=== PATIENT | female | born 1950 | race Caucasian/White ===

== ENCOUNTER 2017-09-24 18:31 | Emergency (ER) | payer MEDICARE, BC, OTHER ==
[~2017-09-24] VITALS: Ht 167.6 cm; Wt 74.0 kg
[~2017-09-24 18:31] MED LIST: PRED20 PO; SULF1TAB47 PO; Z.0.NO CURRENT MEDS
[2017-09-24 18:40] VITALS: PULSE 107; RESP 19; O2SAT 98
[2017-09-24] MEDS ORDERED: SODIUM CHLOR 0.9% 1000 ML INJ 1,000 ML IV ONE (18:45)
[2017-09-24] MEDS ORDERED: LORazepam 2 MG/ML VIAL IM ONE (18:45)
[2017-09-24] MEDS ORDERED: HALOPERIDOL LACTATE 5 MG/ML AMP IM ONE (18:45)
--- NOTE | 2017-09-24 19:15 | PD ---
HPI Chief Complaint: Alcohol/Drug Intoxication Time Seen by Provider: 18:43 Travel History International Travel<30 days: No Contact w/Intl Traveler<30days: No Traveled to known affect area: No History of Present Illness HPI 67-year-old female presents to the emergency Department under [place] act by local police for alcohol intoxication. Apparently, there was a disagreement with her neighbor and she was belligerent and intoxicated so she was placed under a [place] act and brought to the emergency department. Patient is uncooperative with me and will not answer questions due to being agitated and intoxicated. She has no medical complaints at this time. She is ambulatory. She denies any pain. No medical complaints this time. PFSH Past Medical History Anxiety: Yes Diminished Hearing: No ?: Not Menopausal: Yes : 1 Para: 0 Miscarriage: 0 : 1 Past Surgical History Other Surgery: Yes (pyelonitis cyst removed) Social History Alcohol Use: Yes ("3 drinks a day") Tobacco Use: Yes ("one pack of cigarettes a week") Substance Use: No Allergies-Medications (Allergen,Severity, Reaction): Coded Allergies: No Known Allergies (Verified , 08/27/10) Reported Meds & Prescriptions Reported Meds & Active Scripts Active Bactrim Ds (Trimethoprim/Sulfamethoxazole) Tab 1 Tab PO BID Deltasone (Prednisone) 20 Mg Tab 1 Tab PO BID Reported No Current Meds (Miscellaneous Medication) Misc Review of Systems Except as stated in HPI: all other systems reviewed are Neg Physical Exam Exam Limitations: Intoxication, Uncooperative Narrative GENERAL: Well-nourished, well-developed female patient, ambulatory with a steady gait. Patient is agitated with a strong smell of alcohol on her breath. SKIN: Focused skin assessment warm/dry. HEAD: Normocephalic. Atraumatic. EYES: No scleral icterus. No injection or drainage. NECK: Supple, trachea midline. No JVD or lymphadenopathy. CARDIOVASCULAR: Regular rate and rhythm without murmurs, gallops, or rubs. RESPIRATORY: Breath sounds equal bilaterally. No accessory muscle use. Lungs sounds are clear to auscultation. GASTROINTESTINAL: Abdomen soft, non-tender, nondistended. MUSCULOSKELETAL: No cyanosis, or edema. BACK: Nontender without obvious deformity. No CVA tenderness. Data Data Last Documented VS Vital Signs Date Time Temp Pulse Resp B/P (MAP) Pulse Ox O2 Delivery O2 Flow Rate FiO2 09/24/17 20:54 98.4 94 14 144/69 (94) 98 Room Air Orders Orders Lorazepam Inj (Ativan Inj) (09/24/17 18:45) Haloperidol Inj (Haldol Inj) (09/24/17 18:45) Complete Blood Count With Diff (09/24/17 18:41) Comprehensive Metabolic Panel (09/24/17 18:41) Drug Screen, Random Urine (09/24/17 18:41) Alcohol (Ethanol) (09/24/17 18:41) Sodium Chlor 0.9% 1000 Ml Inj (Ns 1000 M (09/24/17 18:45) Ct Brain W/O Iv Contrast(Rout) (09/24/17 ) Restraints Non-Violent BROWN.Q3H (09/24/17 19:15) Labs Laboratory Tests Test 09/24/17 18:50 09/24/17 21:00 White Blood Count 11.2 TH/MM3 Red Blood Count 4.34 MIL/MM3 Hemoglobin 15.2 GM/DL Hematocrit 43.7 % Mean Corpuscular Volume 100.9 FL Mean Corpuscular Hemoglobin 35.0 PG Mean Corpuscular Hemoglobin Concent 34.7 % Red Cell Distribution Width 14.0 % Platelet Count 260 TH/MM3 Mean Platelet Volume 7.8 FL Neutrophils (%) (Auto) 59.5 % Lymphocytes (%) (Auto) 30.9 % Monocytes (%) (Auto) 4.6 % Eosinophils (%) (Auto) 4.3 % Basophils (%) (Auto) 0.7 % Neutrophils # (Auto) 6.6 TH/MM3 Lymphocytes # (Auto) 3.5 TH/MM3 Monocytes # (Auto) 0.5 TH/MM3 Eosinophils # (Auto) 0.5 TH/MM3 Basophils # (Auto) 0.1 TH/MM3 CBC Comment DIFF FINAL Differential Comment Blood Urea Nitrogen 18 MG/DL Creatinine 0.79 MG/DL Random Glucose 86 MG/DL Total Protein 8.4 GM/DL Albumin 4.0 GM/DL Calcium Level 8.5 MG/DL Alkaline Phosphatase 66 U/L Aspartate Amino Transf (AST/SGOT) 33 U/L Alanine Aminotransferase (ALT/SGPT) 42 U/L Total Bilirubin 0.3 MG/DL Sodium Level 138 MEQ/L Potassium Level 4.0 MEQ/L Chloride Level 106 MEQ/L Carbon Dioxide Level 23.1 MEQ/L Anion Gap 9 MEQ/L Estimat Glomerular Filtration Rate 72 ML/MIN Ethyl Alcohol Level 320 MG/DL Urine Opiates Screen NEG Urine Barbiturates Screen NEG Urine Amphetamines Screen NEG Urine Benzodiazepines Screen NEG Urine Cocaine Screen NEG Urine Cannabinoids Screen POS MDM Medical Decision Making Medical Screen Exam Complete: Yes Emergency Medical Condition: Yes Medical Record Reviewed: Yes Differential Diagnosis Alcohol intoxication versus electrolyte abnormality versus head injury Narrative Course 59-year-old female presents to the emergency Department under [place] act for alcohol intoxication. CBC shows no acute abnormality. CMP shows no acute abnormality. Alcohol level is 320. Urine drug screen is positive for cannabinoids. CT of the brain shows no acute findings in the brain. Patient will be allowed to rest in the emergency department until she demonstrates sobriety. Diagnosis Primary Impression: Alcohol intoxication Qualified Codes: F10.920 - Alcohol use, unspecified with intoxication, uncomplicated Referrals: Primary Care Physician [facility] Patient Instructions: Alcohol Intoxication (ED), General Instructions Additional Instructions: Drink alcohol in moderation. Follow-up with your primary care physician. Return to the emergency department for any acute worsening of symptoms. Med/Other Pt SpecificInfo: No Change to Meds Disposition: 01 DISCHARGE HOME Condition: Stable Delaney Morrow ADRIANO Sep 24, 2017 19:15
[2017-09-24 19:47] LABS: AUTOMATED NEUTROPHIL # 6.6 TH/MM3 (1.8-7.7); BASOPHIL # 0.1 TH/MM3 (0-0.2); BASOPHIL % 0.7 % (0.0-2.0); EOSINOPHIL # 0.5 TH/MM3 (0-0.4); EOSINOPHIL % 4.3 % (0.0-4.0); HEMATOCRIT 43.7 % (35.0-46.0); HEMO FLAGS DIFF FINAL; LYMPH % 30.9 % (9.0-44.0); LYMPHOCYTE # 3.5 TH/MM3 (1.0-4.8); MEAN CELL VOLUME 100.9 FL (80.0-100.0); MEAN CORPUSCULAR HGB CONC 34.7 % (32.0-36.0); MONO % 4.6 % (0.0-8.0); NEUT % 59.5 % (16.0-70.0); PLATELET COUNT 260 TH/MM3 (150-450); RED BLOOD COUNT 4.34 MIL/MM3 (4.00-5.30); WHITE BLOOD COUNT 11.2 TH/MM3 (4.0-11.0)
[2017-09-24 20:10] LABS: ANION GAP 9 MEQ/L (5-15); AST (GOT) 33 U/L (15-37); BICARBONATE 23.1 MEQ/L (21.0-32.0); BLOOD UREA NITROGEN 18 MG/DL (7-18); CHLORIDE 106 MEQ/L (98-107); GLOMERULAR FILTRATION RATE 72 ML/MIN (>89); SODIUM (NA) 138 MEQ/L (136-145)
[2017-09-24 20:11] LABS: ALT (GPT) 42 U/L (10-53)
[2017-09-24 20:15] LABS: ALKALINE PHOSPHATASE 66 U/L (45-117); TOTAL BILIRUBIN ADULT 0.3 MG/DL (0.2-1.0)
[2017-09-24 20:18] LABS: ALCOHOL 320 MG/DL (0-5)
[2017-09-24 20:54] VITALS: BP 144/69; PULSE 94; RESP 14; TEMP 98.4; O2SAT 98
--- NOTE | 2017-09-24 22:00 | RADRPT ---
EXAM DATE/TIME: 09/24/2017 21:33 [facility] COMPARISON: No previous studies available for comparison. INDICATIONS : Altered mental status. RADIATION DOSE: 56.35 CTDIvol (mGy) MEDICAL HISTORY : None SURGICAL HISTORY : None. ENCOUNTER: Initial ACUITY: 1 day PAIN SCALE: Non-responsive LOCATION: cranial TECHNIQUE: Multiple contiguous axial images were obtained of the head. Using automated exposure control and adj ustment of the mA and/or kV according to patient size, radiation dose was kept as low as reasonably a chievable to obtain optimal diagnostic quality images. DICOM format image data is available electro nically for review and comparison. FINDINGS: CEREBRUM: The ventricles are normal for age. No evidence of midline shift, mass lesion, hemorrhage or acute in farction. No extra-axial fluid collections are seen. POSTERIOR FOSSA: The cerebellum and brainstem are intact. The 4th ventricle is midline. The cerebellopontine angle i s unremarkable. EXTRACRANIAL: The visualized portion of the orbits is intact. Mucosal thickening in both maxillary sinuses and opa cification of several anterior and mid ethmoids. SKULL: The calvaria is intact. No evidence of skull fracture. CONCLUSION: 1. No acute findings in the brain. 2. Bilateral maxillary and ethmoid sinus disease. Angel Antunez MD on September 24, 2017 at 21:57 Board Certified Radiologist. This report was verified electronically.
[2017-09-24 23:52] VITALS: BP 137/67; PULSE 98; RESP 16; O2SAT 96
== END 2017-09-25 05:59 | disposition home or self-care (01) ==
LOC: NEPE 18:31
DX: F10.129 Alcohol abuse with intoxication, unspecified (principal); F17.210 Nicotine dependence, cigarettes, uncomplicated; Y90.8 Blood alcohol level of 240 mg/100 ml or more
CPT/HCPCS: 70450; 80053; 80307; 85025; 96360; 96361; 96372; 99285; J1630; J2060; J7030

== ENCOUNTER 2018-01-26 09:19 | Inpatient (IN) | payer MEDICARE, BC ==
[2018-01-26] VITALS (10 sets, daily range): BP systolic 125–160; BP diastolic 58–86; PULSE 73–105; RESP 18–20; TEMP 97.5–99.6; O2SAT 95–100
[~2018-01-26] VITALS: Ht 172.7 cm; Wt 73.4 kg
--- NOTE | 2018-01-26 09:36 | PD ---
HPI Chief Complaint: Abdominal Pain Time Seen by Provider: 09:36 Travel History International Travel<30 days: No Contact w/Intl Traveler<30days: No Traveled to known affect area: No History of Present Illness HPI 67-year-old female came to the emergency room brought by her brother with history of shakiness, unsteady gait, nausea and vomiting that is progressively worsening over past 2-3 weeks. Patient says that she tripped and fell 6 weeks ago and her symptoms have almost started couple weeks after that. Patient also happens to be a heavy drinker. She was drinking about 6-8 glasses of vodka mixed with water every day for past many years. In past 2-3 weeks because of the nausea her alcohol consumption has gone down to 4-6 glasses. She starts drinking when she wakes up until she goes to sleep. Vital signs were relatively stable. Patient is awake and answering questions appropriately. She said she drank 2 glasses of vodka this morning. Her brother gives additional history saying that she patient has been vomiting for past 2 years but has refused to come and seek medical help. She does not have a primary care physician. She also says that she has some episodes of diarrhea every day. No blood in her stool or vomit. She takes 1 regular strength aspirin every day for her "heart". This was her own decision. [facility] Past Medical History Narrative Medical List of her past medical, surgical, social and family history is reviewed from the nursing note. Hx Anticoagulant Therapy: No Anxiety: Yes Diminished Hearing: No ?: Not Menopausal: Yes : 1 Para: 0 Miscarriage: 0 : 1 Past Surgical History Other Surgery: Yes (pyelonitis cyst removed) Social History Alcohol Use: Yes ("3 drinks a day") Tobacco Use: Yes ("one pack of cigarettes a week") Substance Use: No Allergies-Medications (Allergen,Severity, Reaction): Coded Allergies: No Known Allergies (Verified Allergy, Unknown, 01/26/18) Comments No known drug allergies. Reported Meds & Prescriptions Reported Meds & Active Scripts Active Reported Aspirin 325 Mg Tab 325 Mg PO DAILY Narrative Medication List of her home medications reviewed from the nursing note. Review of Systems Except as stated in HPI: all other systems reviewed are Neg Gastrointestinal: Positive: Nausea, Vomiting Physical Exam Narrative GENERAL: Awake, alert, moderate distress SKIN: Focused skin assessment warm/dry. HEAD: Atraumatic. Normocephalic. EYES: Pupils equal and round. No scleral icterus. No injection or drainage. ENT: No nasal bleeding or discharge. Mucous membranes pink and moist. NECK: Trachea midline. No JVD. CARDIOVASCULAR: Regular rate and rhythm. No murmur appreciated. RESPIRATORY: No accessory muscle use. Clear to auscultation. Breath sounds equal bilaterally. GASTROINTESTINAL: Abdomen soft, non-tender, nondistended. Hepatic and splenic margins not palpable. MUSCULOSKELETAL: No obvious deformities. No clubbing. No cyanosis. No edema. NEUROLOGICAL: Awake and alert. No obvious cranial nerve deficits. Motor grossly within normal limits. Normal speech. Fine tremors. Good finger-nose and heel myrick coordination PSYCHIATRIC: Appropriate mood and affect; insight and judgment normal. Data Data Last Documented VS Orders Orders Complete Blood Count With Diff (01/26/18 09:45) Comprehensive Metabolic Panel (01/26/18 09:45) Lipase (01/26/18 09:45) Prothrombin Time / Inr (Pt) (01/26/18 09:45) Urinalysis - C+S If Indicated (01/26/18 09:45) Ct Abd/Pel W/O Iv Contrast (01/26/18 09:45) Iv Access Insert/Monitor (01/26/18 09:45) Ecg Monitoring (01/26/18 09:45) Oximetry (01/26/18 09:45) Ondansetron Inj (Zofran Inj) (01/26/18 09:45) Sodium Chlor 0.9% 1000 Ml Inj (Ns 1000 M (01/26/18 09:45) Sodium Chloride 0.9% Flush (Ns Flush) (01/26/18 09:45) Electrocardiogram (01/26/18 09:45) Meclizine (Antivert) (01/26/18 09:45) Ct Brain W/O Iv Contrast(Rout) (01/26/18 ) Alcohol (Ethanol) (01/26/18 09:45) Thiamine Inj (Thiamine Inj) (01/26/18 10:00) Chlordiazepoxide (Librium) (01/26/18 11:45) Hepatitis Profile (01/26/18 11:44) Magnesium (Mg) (01/26/18 12:05) Admit Order (Ed Use Only) (01/26/18 12:16) Labs Laboratory Tests Test 01/26/18 10:05 01/26/18 11:53 White Blood Count 5.5 TH/MM3 Red Blood Count 4.12 MIL/MM3 Hemoglobin 13.8 GM/DL Hematocrit 41.0 % Mean Corpuscular Volume 99.5 FL Mean Corpuscular Hemoglobin 33.5 PG Mean Corpuscular Hemoglobin Concent 33.6 % Red Cell Distribution Width 12.8 % Platelet Count 184 TH/MM3 Mean Platelet Volume 8.6 FL Neutrophils (%) (Auto) 69.5 % Lymphocytes (%) (Auto) 21.2 % Monocytes (%) (Auto) 6.1 % Eosinophils (%) (Auto) 1.1 % Basophils (%) (Auto) 2.1 % Neutrophils # (Auto) 3.8 TH/MM3 Lymphocytes # (Auto) 1.2 TH/MM3 Monocytes # (Auto) 0.3 TH/MM3 Eosinophils # (Auto) 0.1 TH/MM3 Basophils # (Auto) 0.1 TH/MM3 CBC Comment DIFF FINAL Differential Comment Prothrombin Time 9.6 SEC Prothromb Time International Ratio 0.9 RATIO Blood Urea Nitrogen 7 MG/DL Creatinine 0.64 MG/DL Random Glucose 79 MG/DL Total Protein 7.7 GM/DL Albumin 3.6 GM/DL Calcium Level 9.2 MG/DL Alkaline Phosphatase 89 U/L Aspartate Amino Transf (AST/SGOT) 391 U/L Alanine Aminotransferase (ALT/SGPT) 382 U/L Total Bilirubin 0.8 MG/DL Sodium Level 131 MEQ/L Potassium Level 3.7 MEQ/L Chloride Level 93 MEQ/L Carbon Dioxide Level 23.0 MEQ/L Anion Gap 15 MEQ/L Estimat Glomerular Filtration Rate 92 ML/MIN Magnesium Level 1.6 MG/DL Lipase 425 U/L Ethyl Alcohol Level 37 MG/DL Urine Collection Type CLEAN CATCH Urine Color YELLOW Urine Turbidity CLEAR Urine pH 6.5 Urine Specific [place] LESS/EQUAL 1.005 Urine Protein NEG mg/dL Urine Glucose (UA) NEG mg/dL Urine Ketones NEG mg/dL Urine Occult Blood TRACE Urine Nitrite NEG Urine Bilirubin NEG Urine Urobilinogen 0.2 MG/DL Urine Leukocyte Esterase NEG Urine Squamous Epithelial Cells 0-5 /hpf Microscopic Urinalysis Comment CULT NOT INDICATED MDM Medical Decision Making Medical Screen Exam Complete: Yes Emergency Medical Condition: Yes Medical Record Reviewed: Yes Interpretation(s) Twelve-lead EKG was reviewed by me. Normal sinus rhythm, normal axis, nonspecific ST-T wave changes. Heart rate of 91 bpm. Differential Diagnosis Small bowel obstruction, intra-abdominal mass, neoplasm, alcoholic gastritis Narrative Course 11:42 AM patient was given IV fluid bolus and Zofran. I also ordered meclizine. CAT scan of the head and abdomen and pelvis was done which is read essentially to be negative except for steatosis of the liver. Blood test result shows elevated liver enzymes. I went and discussed all these results with the patient and her brother. In my opinion all her symptoms are related to the chronic abuse of alcohol. After much discussion the patient and the brother decided that patient will be going through detox. However I can see that she's already withdrawing since her shakes and tremors have worsened when I went back to reassess her. She has a high risk for withdrawal including DTs. I would keep her in the hospital if she has seriously decided and considered detox. I put a call out for the hospitalist. Procedures EKG Prior to Arrival: No Diagnosis Primary Impression: Alcohol withdrawal Qualified Codes: F10.239 - Alcohol dependence with withdrawal, unspecified Additional Impressions: Alcoholic gastritis Qualified Codes: K29.20 - Alcoholic gastritis without bleeding impending DTs Elevated liver function tests Admitting Information Admitting Physician Requests: it Natividad Kaufman MD Jan 26, 2018 09:36
[2018-01-26] MEDS ORDERED: ASPI-183 PO (09:42)
[2018-01-26] MEDS ORDERED: MECLIZINE HCL 25 MG TAB PO ONE (09:45)
[2018-01-26] MEDS ORDERED: SODIUM CHLOR 0.9% 1000 ML INJ 1,000 ML IV SCH (09:45)
[2018-01-26] MEDS ORDERED: SODIUM CHLORIDE 0.9% FLUSH 10 ML FLUSH IV FLUSH PRN ×2 (09:45→12:45)
[2018-01-26] MEDS ORDERED: ONDANSETRON HCL 4 MG/2 ML VIAL IVP ONE (09:45)
[2018-01-26] MEDS ORDERED: THIAMINE HCL 200 MG/2 ML VIAL IM ONE (10:00)
[2018-01-26 10:15] LABS: AUTOMATED NEUTROPHIL # 3.8 TH/MM3 (1.8-7.7); BASOPHIL # 0.1 TH/MM3 (0-0.2); BASOPHIL % 2.1 % (0.0-2.0); EOSINOPHIL # 0.1 TH/MM3 (0-0.4); EOSINOPHIL % 1.1 % (0.0-4.0); HEMOGLOBIN 13.8 GM/DL (11.6-15.3); LYMPH % 21.2 % (9.0-44.0); LYMPHOCYTE # 1.2 TH/MM3 (1.0-4.8); MEAN CELL VOLUME 99.5 FL (80.0-100.0); MEAN CORPUSCULAR HEMOGLOBIN 33.5 PG (27.0-34.0); MEAN CORPUSCULAR HGB CONC 33.6 % (32.0-36.0); MEAN PLATELET VOLUME 8.6 FL (7.0-11.0); MONO % 6.1 % (0.0-8.0); MONOCYTE # 0.3 TH/MM3 (0-0.9); NEUT % 69.5 % (16.0-70.0); PLATELET COUNT 184 TH/MM3 (150-450); RED BLOOD COUNT 4.12 MIL/MM3 (4.00-5.30); RED CELL DISTRIBUTION WIDTH 12.8 % (11.6-17.2); WHITE BLOOD COUNT 5.5 TH/MM3 (4.0-11.0)
[2018-01-26 10:26] LABS: CHLORIDE 93 MEQ/L (98-107); SODIUM (NA) 131 MEQ/L (136-145)
[2018-01-26 10:29] LABS: ALBUMIN 3.6 GM/DL (3.4-5.0); CALCIUM 9.2 MG/DL (8.5-10.1); GLUCOSE,RANDOM 79 MG/DL (74-106)
[2018-01-26 10:30] LABS: BLOOD UREA NITROGEN 7 MG/DL (7-18)
[2018-01-26 10:32] LABS: ALT (GPT) 382 U/L (10-53); AST (GOT) 391 U/L (15-37); CREATININE 0.64 MG/DL (0.50-1.00); GLOMERULAR FILTRATION RATE 92 ML/MIN (>89)
[2018-01-26 10:34] LABS: TOTAL BILIRUBIN ADULT 0.8 MG/DL (0.2-1.0); TOTAL PROTEIN 7.7 GM/DL (6.4-8.2)
[2018-01-26 10:35] LABS: ALKALINE PHOSPHATASE 89 U/L (45-117)
[2018-01-26 10:41] LABS: INTERNATIONAL NORMALIZED RATIO 0.9 RATIO; PROTHROMBIN TIME - PATIENT 9.6 SEC (9.8-11.6)
--- NOTE | 2018-01-26 10:59 | RADRPT ---
EXAM DATE/TIME: 01/26/2018 10:46 [facility] COMPARISON: CT BRAIN W/O CONTRAST, September 24, 2017, 21:33. INDICATIONS : Dizziness. RADIATION DOSE: 60.57 CTDIvol (mGy) MEDICAL HISTORY : None SURGICAL HISTORY : None. ENCOUNTER: Initial ACUITY: 3 days PAIN SCALE: 0/10 LOCATION: cranial TECHNIQUE: Multiple contiguous axial images were obtained of the head. Using automated exposure control and adj ustment of the mA and/or kV according to patient size, radiation dose was kept as low as reasonably a chievable to obtain optimal diagnostic quality images. DICOM format image data is available electro nically for review and comparison. FINDINGS: CEREBRUM: The ventricles are normal for age. No evidence of midline shift, mass lesion, hemorrhage or acute in farction. No extra-axial fluid collections are seen. POSTERIOR FOSSA: The cerebellum and brainstem are intact. The 4th ventricle is midline. The cerebellopontine angle i s unremarkable. EXTRACRANIAL: The visualized portion of the orbits is intact. SKULL: The calvaria is intact. No evidence of skull fracture. CONCLUSION: No acute hemorrhage mass or evidence of infarction. Main Ahumada MD on January 26, 2018 at 10:56 Board Certified Radiologist. This report was verified electronically.
--- NOTE | 2018-01-26 11:19 | RADRPT ---
EXAM DATE/TIME: 01/26/2018 10:40 [facility] COMPARISON: No previous studies available for comparison. INDICATIONS : Left abdominal pain with nausea and vomiting. ORAL CONTRAST: No oral contrast ingested. RADIATION DOSE: 13.81 CTDIvol (mGy) MEDICAL HISTORY : None SURGICAL HISTORY : None. ENCOUNTER: Initial ACUITY: 3 days PAIN SCALE: 8/10 LOCATION: Left abdomen TECHNIQUE: Volumetric scanning of the abdomen and pelvis was performed. Using automated exposure control and ad justment of the mA and/or kV according to patient size, radiation dose was kept as low as reasonably achievable to obtain optimal diagnostic quality images. DICOM format image data is available electro nically for review and comparison. FINDINGS: LOWER LUNGS: The visualized lower lungs are clear. LIVER: The liver is normal in size and shape. There is severe diffuse hepatic steatosis with 2 focal low att enuation lesions identified. The larger is located in the central liver measuring approximately 4 x 3 .6 x 2.8 cm. The second is in the inferior right lobe and measures approximately 1.5 cm and is subtle . There is no ductal dilatation. There is no ascites. The portal venous system is patent. The gallbla dder is unremarkable with no calcified gallstones. SPLEEN: Normal size without lesion. PANCREAS: Within normal limits. KIDNEYS: Normal in size and shape. There is no mass, stone, or hydronephrosis. ADRENAL GLANDS: Within normal limits. VASCULAR: There is no aortic aneurysm. BOWEL/MESENTERY: The stomach, small bowel, and colon demonstrate no acute abnormality. There is no free intraperitone al air or fluid. ABDOMINAL WALL: Within normal limits. RETROPERITONEUM: There is no lymphadenopathy. BLADDER: No wall thickening or mass. REPRODUCTIVE: Within normal limits. INGUINAL: There is no lymphadenopathy or hernia. MUSCULOSKELETAL: Within normal limits for patient age. CONCLUSION: 1. Unremarkable bowel gas pattern with no inflammatory change or evidence of obstruction. 2. Severe hepatic steatosis with 2 focal low attenuation lesions which are nonspecific. This could be further evaluated with outpatient MRI. Main Ahumada MD on January 26, 2018 at 11:07 Board Certified Radiologist. This report was verified electronically.
[2018-01-26] MEDS ORDERED: chlordiazePOXIDE 25 MG CAP PO ONE (11:45)
[2018-01-26 12:07] LABS: BILIRUBIN, URINE NEG (NEG); BLOOD, URINE TRACE (NEG); GLUCOSE,URINE NEG (NEG); KETONE, URINE NEG (NEG); NITRITE,URINE NEG (NEG); PH, URINE 6.5 (5.0-8.5); URINE COLOR YELLOW (YELLW/STRAW); URINE LEUKOCYTE ESTERASE NEG (NEG)
[2018-01-26 12:12] LABS: SQUAMOUS EPITHELIAL CELL URINE 0-5 /hpf (0-5)
[2018-01-26] MEDS ORDERED: FLUMAZENIL 0.5 MG/5 ML VIAL IV PUSH PRN (12:45)
[2018-01-26] MEDS ORDERED: LORazepam 2 MG TAB PO PRN (12:45)
[2018-01-26] MEDS ORDERED: MAGNESIUM HYDROXIDE SUSP 30 ML CUP PO PRN (12:45)
[2018-01-26] MEDS ORDERED: LORazepam 2 MG/ML VIAL IV PUSH PRN ×3 (12:45)
[2018-01-26] MEDS ORDERED: NALOXONE HCL 0.4 MG/ML AMP IV PUSH PRN (12:45)
[2018-01-26] MEDS: SODIUM CHLOR 0.9% 1000 ML INJ 1,000 ML IV SCH ×2 (13:28→23:46)
[2018-01-26] MEDS ORDERED: ONDANSETRON HCL 4 MG/2 ML VIAL IVP PRN (16:00)
[2018-01-26] MEDS: chlordiazePOXIDE 25 MG CAP PO SCH (17:25)
[2018-01-26] MEDS: ENOXAPARIN SODIUM 40 MG/0.4 ML SYRINGE SQ SCH (17:26)
--- NOTE | 2018-01-26 18:46 | HHI.HP ---
[facility] Service [facility] Primary Care Physician No Primary Care Physician Admission Diagnosis alcohol withdrawal, impending DTs, elevated liver enzymes Diagnoses: Travel History International Travel<30 Days: No Contact w/Intl Traveler <30 Da: No Traveled to Known Affected Are: No History of Present Illness Mrs. Hurtado is a 67 year old female. She has a long history of alcohol abuse. She is been drinking heavily for many years. She came in the hospital secondary to shaking. She says recently she has been trying to cut back or drink. She also complains of abdominal pain. This may be related to alcohol abuse and gastritis. LFTs are elevated. She has a history of hepatitis. She cannot remember which hepatitis virus she has. LFT elevations could be related to alcohol or chronic hepatitis. No other complaints tonight. Some diarrhea as reported and can also be related to alcoholism. Review of Systems Constitutional: COMPLAINS OF: Fatigue, DENIES: Fever, Chills Eyes: DENIES: Blurred vision, Diplopia, Eye inflammation, Eye pain Ears, nose, mouth, throat: DENIES: Hearing loss, Vertigo, Nasal discharge Respiratory: DENIES: Cough, Wheezing, Shortness of breath Cardiovascular: DENIES: Chest pain, Palpitations, Syncope Gastrointestinal: DENIES: Abdominal pain, Black stools, Bloody stools Musculoskeletal: DENIES: Joint pain, Muscle aches, Stiffness Integumentary: DENIES: Abnormal pigmentation, Pruritus, Rash, Nail changes, Breast masses Hematologic/lymphatic: DENIES: Bruising, Lymphadenopathy Immunologic/allergic: DENIES: Eczema, Urticaria Neurologic: COMPLAINS OF: Tremor, DENIES: Abnormal gait, Headache, Paresthesias Psychiatric: DENIES: Anxiety, Confusion, Depression Past Family Social History Past Medical History Alcoholism Gen. anxiety disorder Past Surgical History pyelonitis cyst removed Reported Medications Reported Meds & Active Scripts Active Reported Aspirin 325 Mg Tab 325 Mg PO DAILY Allergies: Coded Allergies: No Known Allergies (Verified Allergy, Unknown, 01/26/18) Active Ordered Medications Administered Medications Medications (Trade) Dose Ordered Sig/Gume Route PRN Reason Start Time Stop Time Status Last Admin Dose Admin Sodium Chloride 1,000 ml @ 100 mls/hr Q10H IV 01/26/18 12:42 01/26/18 13:28 Enoxaparin Sodium (Lovenox Inj) 40 mg Q24H SQ 01/26/18 18:00 01/26/18 17:26 Chlordiazepoxide (Librium) 25 mg Q6H PO 01/26/18 18:00 01/26/18 17:25 Lorazepam (Ativan Inj) 1 mg Q4H PRN IV PUSH CIWA 8 - 10 01/26/18 12:45 01/26/18 17:28 Family History Alzheimer's disease in mother Cancer in father Dementia in sister Social History Alcohol Use: Yes ("3 drinks a day") Tobacco Use: Yes ("one pack of cigarettes a week") Substance Use: No Physical Exam Vital Signs Vital Signs Date Time Temp Pulse Resp B/P (MAP) Pulse Ox O2 Delivery O2 Flow Rate FiO2 01/26/18 17:18 97 Room Air 01/26/18 17:14 105 18 125/77 (93) 95 Room Air 01/26/18 13:05 81 18 158/75 (102) 99 Room Air 01/26/18 11:04 88 18 160/84 (109) 99 Room Air 01/26/18 10:09 99 Room Air 01/26/18 09:36 86 18 159/86 (110) 97 Room Air 01/26/18 09:22 99.6 105 18 134/78 (96) 100 Physical Exam GENERAL: NAD, A&Ox3, global tremors HEAD: Normocephalic. NECK: Supple, trachea midline. No lymphadenopathy. EYES: No scleral icterus. No injection or drainage. CARDIOVASCULAR: Regular rate and rhythm without murmurs, gallops, or rubs. RESPIRATORY: Breath sounds equal bilaterally. No accessory muscle use. GASTROINTESTINAL: Abdomen soft, non-tender, nondistended. MUSCULOSKELETAL: No cyanosis, or edema. SKIN: Warm and dry. NEURO: No focal neurological deficitis. Laboratory Laboratory Tests Test 01/26/18 10:05 01/26/18 11:53 01/26/18 12:36 White Blood Count 5.5 Red Blood Count 4.12 Hemoglobin 13.8 Hematocrit 41.0 Mean Corpuscular Volume 99.5 Mean Corpuscular Hemoglobin 33.5 Mean Corpuscular Hemoglobin Concent 33.6 Red Cell Distribution Width 12.8 Platelet Count 184 Mean Platelet Volume 8.6 Neutrophils (%) (Auto) 69.5 Lymphocytes (%) (Auto) 21.2 Monocytes (%) (Auto) 6.1 Eosinophils (%) (Auto) 1.1 Basophils (%) (Auto) 2.1 Neutrophils # (Auto) 3.8 Lymphocytes # (Auto) 1.2 Monocytes # (Auto) 0.3 Eosinophils # (Auto) 0.1 Basophils # (Auto) 0.1 CBC Comment DIFF FINAL Differential Comment Prothrombin Time 9.6 Prothromb Time International Ratio 0.9 Blood Urea Nitrogen 7 Creatinine 0.64 Random Glucose 79 Total Protein 7.7 Albumin 3.6 Calcium Level 9.2 Alkaline Phosphatase 89 Aspartate Amino Transf (AST/SGOT) 391 Alanine Aminotransferase (ALT/SGPT) 382 Total Bilirubin 0.8 Sodium Level 131 Potassium Level 3.7 Chloride Level 93 Carbon Dioxide Level 23.0 Anion Gap 15 Estimat Glomerular Filtration Rate 92 Magnesium Level 1.6 Lipase 425 Ethyl Alcohol Level 37 Urine Collection Type CLEAN CATCH Urine Color YELLOW Urine Turbidity CLEAR Urine pH 6.5 Urine Specific [place] LESS/EQUAL 1.005 Urine Protein NEG Urine Glucose (UA) NEG Urine Ketones NEG Urine Occult Blood TRACE Urine Nitrite NEG Urine Bilirubin NEG Urine Urobilinogen 0.2 Urine Leukocyte Esterase NEG Urine Squamous Epithelial Cells 0-5 Microscopic Urinalysis Comment CULT NOT INDICATED Hepatitis A IgM Antibody NONREACTIVE Hepatitis B Surface Antigen NONREACTIVE Hepatitis B Core IgM Antibody NONREACTIVE Hepatitis C IgG Antibody NONREACTIVE Result Diagram: 01/26/18 1005 01/26/18 1005 Caprini VTE Risk Assessment Caprini VTE Risk Assessment: No/Low Risk (score <= 1) Caprini Risk Assessment Model Point Value = 1 Point Value = 2 Point Value = 3 Point Value = 5 Age 41-60 Minor surgery BMI > 25 kg/m2 Swollen legs Varicose veins or History of unexplained or recurrent spontaneous Oral contraceptives or hormone replacement Sepsis (< 1 month) Serious lung disease, including pneumonia (< 1 month) Abnormal pulmonary function Acute myocardial infarction Congestive heart failure (< 1 month) History of inflammatory bowel disease Medical patient at bed rest Age 61-74 Arthroscopic surgery Major open surgery (> 45 min) Laparoscopic surgery (> 45 min) Malignancy Confined to bed (> 72 hours) Immobilizing plaster cast Central venous access Age >= 75 History of VTE Family history of VTE Factor V Leiden Prothrombin [id number] Lupus anticoagulant Anticardiolipin antibodies Elevated serum homocysteine Heparin-induced thrombocytopenia Other congenital or acquired thrombophilia Stroke (< 1 month) Elective arthroplasty Hip, pelvis, or leg fracture Acute spinal cord injury (< 1 month) Prophylaxis Regimen Total Risk Factor Score Risk Level Prophylaxis Regimen 0-1 Low Early ambulation 2 Moderate Order ONE of the following: *Sequential Compression Device (SCD) *Heparin 5000 units SQ BID 3-4 Higher Order ONE of the following medications: *Heparin 5000 units SQ TID *Enoxaparin/Lovenox 40 mg SQ daily (WT < 150 kg, CrCl > 30 mL/min) *Enoxaparin/Lovenox 30 mg SQ daily (WT < 150 kg, CrCl > 10-29 mL/min) *Enoxaparin/Lovenox 30 mg SQ BID (WT < 150 kg, CrCl > 30 mL/min) AND/OR *Sequential Compression Device (SCD) 5 or more Highest Order ONE of the following medications: *Heparin 5000 units SQ TID (Preferred with Epidurals) *Enoxaparin/Lovenox 40 mg SQ daily (WT < 150 kg, CrCl > 30 mL/min) *Enoxaparin/Lovenox 30 mg SQ daily (WT < 150 kg, CrCl > 10-29 mL/min) *Enoxaparin/Lovenox 30 mg SQ BID (WT < 150 kg, CrCl > 30 mL/min) AND *Sequential Compression Device (SCD) Assessment and Plan Problem List: (1) Alcohol withdrawal ICD Code: F10.239 - Alcohol dependence with withdrawal, unspecified Status: Acute (2) Alcoholic gastritis ICD Code: K29.20 - Alcoholic gastritis without bleeding Status: Acute (3) Elevated liver function tests ICD Code: R79.89 - Other specified abnormal findings of blood chemistry Status: Acute Assessment and Plan 67-year-old female admitted secondary to delirium tremens Delirium tremens Alcohol abuse Alcohol withdrawal Folic acid Thiamine Scheduled Librium CIWA protocol Elevated LFTs Hepatitis panel ordered Gastritis Twice a day Protonix Avoid alcohol Follow clinically for improvement DVT prophylaxis Lovenox Physician Certification 2 Midnight Certification Type: Admission for Inpatient Services Order for Inpatient Services The services are ordered in accordance with Medicare regulations or non- Medicare payer requirements, as applicable. In the case of services not specified as inpatient-only, they are appropriately provided as inpatient services in accordance with the 2-midnight benchmark. Estimated LOS (days): 3 days is the estimated time the patient will need to remain in the hospital, assuming treatment plan goals are met and no additional complications. Post-Hospital Plan: Home Problem Qualifiers (1) Alcohol withdrawal: Qualified Codes: F10.239 - Alcohol dependence with withdrawal, unspecified (2) Alcoholic gastritis: Qualified Codes: K29.20 - Alcoholic gastritis without bleeding Octavio Arteaga MD Jan 26, 2018 18:45
[2018-01-26] MEDS: SODIUM CHLORIDE 0.9% FLUSH 10 ML FLUSH IV FLUSH SCH (22:30)
[2018-01-26] MEDS: PANTOPRAZOLE SOD 40 MG DELAYED RELEASE TAB PO SCH (22:30)
[2018-01-27] VITALS: BP 131/72; PULSE 72; RESP 20; TEMP 97.2; O2SAT 96
[2018-01-27] MEDS: chlordiazePOXIDE 25 MG CAP PO SCH ×4 (00:04→17:02)
--- NOTE | 2018-01-27 00:04 | EKG ---
Date Performed: 01/26/2018 Time Performed: 10:15:19 PTAGE: 67 years EKG: Sinus rhythm NONSPECIFIC ST & T-WAVE ABNORMALITY BORDERLINE ECG PREVIOUS TRACING : 06/01/2010 07.55 DOCTOR: Bebeto Martinez Interpretating Date/Time 01/26/2018 23:59:48
[2018-01-27] MEDS ORDERED: LORazepam 1 MG TAB PO ONE (04:00)
[2018-01-27 08:00] VITALS: BP 134/77; PULSE 74; RESP 18; TEMP 97.8; O2SAT 96
[2018-01-27] MEDS: MULTIVITAMINS/MINERALS THERAPEUTIC TAB PO SCH (08:33)
[2018-01-27] MEDS: PANTOPRAZOLE SOD 40 MG DELAYED RELEASE TAB PO SCH ×2 (08:33→21:13)
[2018-01-27] MEDS: THIAMINE HCL 100 MG TAB PO SCH (08:33)
[2018-01-27] MEDS: FOLIC ACID 1 MG TAB PO SCH (08:33)
[2018-01-27] MEDS: SODIUM CHLOR 0.9% 1000 ML INJ 1,000 ML IV SCH ×2 (08:34→16:59)
[2018-01-27] MEDS: SODIUM CHLORIDE 0.9% FLUSH 10 ML FLUSH IV FLUSH SCH ×2 (08:34→21:14)
[2018-01-27 09:16] LABS: AUTOMATED NEUTROPHIL # 2.7 TH/MM3 (1.8-7.7); EOSINOPHIL # 0.1 TH/MM3 (0-0.4); EOSINOPHIL % 2.2 % (0.0-4.0); HEMATOCRIT 36.9 % (35.0-46.0); HEMOGLOBIN 12.2 GM/DL (11.6-15.3); LYMPH % 28.3 % (9.0-44.0); LYMPHOCYTE # 1.2 TH/MM3 (1.0-4.8); MEAN CORPUSCULAR HEMOGLOBIN 33.5 PG (27.0-34.0); MEAN CORPUSCULAR HGB CONC 33.2 % (32.0-36.0); MEAN PLATELET VOLUME 8.4 FL (7.0-11.0); MONO % 8.1 % (0.0-8.0); MONOCYTE # 0.3 TH/MM3 (0-0.9); NEUT % 60.4 % (16.0-70.0); PLATELET COUNT 155 TH/MM3 (150-450); RED BLOOD COUNT 3.65 MIL/MM3 (4.00-5.30); WHITE BLOOD COUNT 4.3 TH/MM3 (4.0-11.0)
[2018-01-27 10:05] LABS: ALBUMIN 3.2 GM/DL (3.4-5.0); ALT (GPT) 258 U/L (10-53); AST (GOT) 221 U/L (15-37); BICARBONATE 26.8 MEQ/L (21.0-32.0); BLOOD UREA NITROGEN 10 MG/DL (7-18); CALCIUM 8.4 MG/DL (8.5-10.1); CHLORIDE 103 MEQ/L (98-107); CREATININE 0.65 MG/DL (0.50-1.00); GLOMERULAR FILTRATION RATE 91 ML/MIN (>89); GLUCOSE,RANDOM 89 MG/DL (74-106); SODIUM (NA) 138 MEQ/L (136-145); TOTAL PROTEIN 6.7 GM/DL (6.4-8.2)
[2018-01-27 10:06] LABS: ALKALINE PHOSPHATASE 78 U/L (45-117)
[2018-01-27 10:07] LABS: TOTAL BILIRUBIN ADULT 0.7 MG/DL (0.2-1.0)
[2018-01-27] MEDS ORDERED: POTASSIUM CHLORIDE 10 MEQ CONTROLLED RELEASE TAB PO ONE (11:30)
--- NOTE | 2018-01-27 11:30 | HHI.PR ---
Subjective Remarks Delirium tremens till present. Patient has no new complaints today and still feels that the medications are helping. No confusion. Objective Vital Signs Date Time Temp Pulse Resp B/P (MAP) Pulse Ox O2 Delivery O2 Flow Rate FiO2 01/27/18 08:00 97.8 74 18 134/77 (96) 96 01/27/18 00:00 97.2 72 20 131/72 (91) 96 01/26/18 20:30 73 01/26/18 20:30 98.4 93 20 140/78 (98) 97 01/26/18 20:27 97.5 93 16 125/58 (80) 97 01/26/18 17:18 97 Room Air 01/26/18 17:14 105 18 125/77 (93) 95 Room Air 01/26/18 13:05 81 18 158/75 (102) 99 Room Air I/O 01/26/18 01/26/18 01/26/18 01/27/18 01/27/18 01/27/18 07:00 15:00 23:00 07:00 15:00 23:00 Intake Total 1000 ml 1484 ml 200 ml Balance 1000 ml 1484 ml 200 ml Intake Oral 200 ml IV Total 1000 ml 1484 ml # Voids 1 3 # Bowel Movements 0 Result Diagram: 01/27/18 0902 01/27/18 0902 Other Results GENERAL: NAD, A&Ox3, global tremors HEAD: Normocephalic. NECK: Supple, trachea midline. No lymphadenopathy. EYES: No scleral icterus. No injection or drainage. CARDIOVASCULAR: Regular rate and rhythm without murmurs, gallops, or rubs. RESPIRATORY: Breath sounds equal bilaterally. No accessory muscle use. GASTROINTESTINAL: Abdomen soft, non-tender, nondistended. MUSCULOSKELETAL: No cyanosis, or edema. SKIN: Warm and dry. NEURO: No focal neurological deficitis. A/P Problem List: (1) Alcohol withdrawal ICD Code: F10.239 - Alcohol dependence with withdrawal, unspecified Status: Acute (2) Alcoholic gastritis ICD Code: K29.20 - Alcoholic gastritis without bleeding Status: Acute (3) Elevated liver function tests ICD Code: R79.89 - Other specified abnormal findings of blood chemistry Status: Acute Assessment and Plan 67-year-old female admitted secondary to delirium tremens Labs reviewed. Potassium level is low. Continue to monitor labs. Labs ordered for further monitoring. Hypokalemia Monitor and replace as needed Delirium tremens Alcohol abuse Alcohol withdrawal Folic acid Thiamine Scheduled Librium CIWA protocol Monitor for electrolytes disturbance Elevated LFTs Hepatitis panel ordered Gastritis Twice a day Protonix Avoid alcohol Follow clinically for improvement DVT prophylaxis Lovenox Problem Qualifiers (1) Alcohol withdrawal: Qualified Codes: F10.239 - Alcohol dependence with withdrawal, unspecified (2) Alcoholic gastritis: Qualified Codes: K29.20 - Alcoholic gastritis without bleeding Octavio Arteaga MD Jan 27, 2018 11:30
[2018-01-27 12:00] VITALS: BP 143/82; PULSE 102; RESP 18; TEMP 97.2; O2SAT 98
[2018-01-27 16:00] VITALS: BP 124/63; PULSE 85; RESP 18; TEMP 97; O2SAT 95
[2018-01-27] MEDS: ENOXAPARIN SODIUM 40 MG/0.4 ML SYRINGE SQ SCH (16:58)
[2018-01-27] MEDS ORDERED: NICOTINE 14 MG/24 HR PATCH T-DERMAL ONE (17:00)
[2018-01-27] MEDS: LORazepam 2 MG/ML VIAL IV PUSH PRN (18:57)
[2018-01-27 20:00] VITALS: BP 148/68; PULSE 80; PULSE 88; RESP 21; TEMP 98.9; O2SAT 95
[2018-01-28] VITALS (11 sets, daily range): BP systolic 128–159; BP diastolic 69–97; PULSE 73–93; RESP 17–20; TEMP 96.4–98.7; O2SAT 76–99
[2018-01-28] MEDS: chlordiazePOXIDE 25 MG CAP PO SCH ×5 (00:20→23:26)
[2018-01-28] MEDS: LORazepam 2 MG/ML VIAL IV PUSH PRN (02:06)
[2018-01-28] MEDS: SODIUM CHLOR 0.9% 1000 ML INJ 1,000 ML IV SCH (02:56)
[2018-01-28 07:05] LABS: AUTOMATED NEUTROPHIL # 2.9 TH/MM3 (1.8-7.7); BASOPHIL % 0.4 % (0.0-2.0); EOSINOPHIL # 0.1 TH/MM3 (0-0.4); EOSINOPHIL % 1.4 % (0.0-4.0); HEMATOCRIT 33.2 % (35.0-46.0); HEMOGLOBIN 11.4 GM/DL (11.6-15.3); LYMPH % 27.5 % (9.0-44.0); LYMPHOCYTE # 1.2 TH/MM3 (1.0-4.8); MEAN CELL VOLUME 102.8 FL (80.0-100.0); MEAN CORPUSCULAR HEMOGLOBIN 35.3 PG (27.0-34.0); MEAN CORPUSCULAR HGB CONC 34.4 % (32.0-36.0); MEAN PLATELET VOLUME 8.5 FL (7.0-11.0); MONO % 5.6 % (0.0-8.0); MONOCYTE # 0.2 TH/MM3 (0-0.9); NEUT % 65.1 % (16.0-70.0); PLATELET COUNT 140 TH/MM3 (150-450); RED BLOOD COUNT 3.23 MIL/MM3 (4.00-5.30); RED CELL DISTRIBUTION WIDTH 13.1 % (11.6-17.2); WHITE BLOOD COUNT 4.4 TH/MM3 (4.0-11.0)
[2018-01-28 07:41] LABS: ALBUMIN 2.6 GM/DL (3.4-5.0); ALKALINE PHOSPHATASE 65 U/L (45-117); ALT (GPT) 195 U/L (10-53); AST (GOT) 155 U/L (15-37); BICARBONATE 27.2 MEQ/L (21.0-32.0); CALCIUM 7.8 MG/DL (8.5-10.1); CHLORIDE 105 MEQ/L (98-107); CREATININE 0.41 MG/DL (0.50-1.00); GLOMERULAR FILTRATION RATE 154 ML/MIN (>89); GLUCOSE,RANDOM 89 MG/DL (74-106); SODIUM (NA) 139 MEQ/L (136-145); TOTAL BILIRUBIN ADULT 0.4 MG/DL (0.2-1.0); TOTAL PROTEIN 5.7 GM/DL (6.4-8.2)
[2018-01-28 07:48] LABS: BLOOD UREA NITROGEN 8 MG/DL (7-18)
[2018-01-28] MEDS ORDERED: POTASSIUM CHLORIDE 10 MEQ CONTROLLED RELEASE TAB PO ONE ×2 (08:00→08:45)
[2018-01-28] MEDS: LORazepam 1 MG TAB PO PRN ×2 (08:23→16:24)
[2018-01-28] MEDS: NS + KCL 20 MEQ INJ 1,000 ML IV SCH ×2 (08:25→19:55)
[2018-01-28] MEDS: NICOTINE 14 MG/24 HR PATCH T-DERMAL SCH (09:00)
[2018-01-28] MEDS: REMOVE OLD PATCH T-DERMAL SCH (09:00)
[2018-01-28] MEDS: PANTOPRAZOLE SOD 40 MG DELAYED RELEASE TAB PO SCH ×2 (09:00→22:20)
[2018-01-28] MEDS: FOLIC ACID 1 MG TAB PO SCH (09:00)
[2018-01-28] MEDS: SODIUM CHLORIDE 0.9% FLUSH 10 ML FLUSH IV FLUSH SCH ×2 (09:00→22:20)
[2018-01-28] MEDS: MULTIVITAMINS/MINERALS THERAPEUTIC TAB PO SCH (09:00)
[2018-01-28] MEDS: THIAMINE HCL 100 MG TAB PO SCH (09:00)
--- NOTE | 2018-01-28 10:34 | HHI.PR ---
Subjective Remarks Delirium tremens is still present, not yet improving. She is feeling weak. Potassium level today is very low. Objective Vital Signs Date Time Temp Pulse Resp B/P (MAP) Pulse Ox O2 Delivery O2 Flow Rate FiO2 01/28/18 07:50 98.0 88 20 146/90 (108) 98 01/28/18 06:00 97.6 20 159/89 (112) 76 01/28/18 05:00 97.4 20 151/96 (114) 94 01/28/18 04:00 98.0 88 17 128/72 (90) 95 01/28/18 03:00 96.4 81 20 154/90 (111) 97 01/28/18 00:00 98.2 79 19 131/69 (89) 96 01/27/18 20:00 98.9 88 21 148/68 (94) 95 01/27/18 20:00 80 01/27/18 16:00 97.0 85 18 124/63 (83) 95 01/27/18 12:00 97.2 102 18 143/82 (102) 98 I/O 01/27/18 01/27/18 01/27/18 01/28/18 01/28/18 01/28/18 07:00 15:00 23:00 07:00 15:00 23:00 Intake Total 1484 ml 1050 ml 2000 ml Balance 1484 ml 1050 ml 2000 ml Intake Oral 1050 ml IV Total 1484 ml 2000 ml # Voids 8 7 # Bowel Movements 3 Result Diagram: 01/28/1820 01/28/18 0620 Objective Remarks GENERAL: NAD, A&Ox3, global tremors HEAD: Normocephalic. NECK: Supple, trachea midline. No lymphadenopathy. EYES: No scleral icterus. No injection or drainage. CARDIOVASCULAR: Regular rate and rhythm without murmurs, gallops, or rubs. RESPIRATORY: Breath sounds equal bilaterally. No accessory muscle use. GASTROINTESTINAL: Abdomen soft, non-tender, nondistended. MUSCULOSKELETAL: No cyanosis, or edema. SKIN: Warm and dry. NEURO: No focal neurological deficitis. A/P Problem List: (1) Alcohol withdrawal ICD Code: F10.239 - Alcohol dependence with withdrawal, unspecified Status: Acute (2) Alcoholic gastritis ICD Code: K29.20 - Alcoholic gastritis without bleeding Status: Acute (3) Elevated liver function tests ICD Code: R79.89 - Other specified abnormal findings of blood chemistry Status: Acute Assessment and Plan 67-year-old female admitted secondary to delirium tremens Labs reviewed. Potassium level is low. Continue to monitor labs. Labs ordered for further monitoring. Replaced and repeat potassium level at noon today. Will replace again as needed. Hypokalemia Monitor and replace as needed Delirium tremens Alcohol abuse Alcohol withdrawal Folic acid Thiamine Scheduled Librium CIWA protocol Monitor for electrolytes disturbance Elevated LFTs Hepatitis panel ordered Gastritis Twice a day Protonix Avoid alcohol Follow clinically for improvement DVT prophylaxis Lovenox Problem Qualifiers (1) Alcohol withdrawal: Qualified Codes: F10.239 - Alcohol dependence with withdrawal, unspecified (2) Alcoholic gastritis: Qualified Codes: K29.20 - Alcoholic gastritis without bleeding Octavio Arteaga MD Jan 28, 2018 10:34
[2018-01-28] MEDS: ENOXAPARIN SODIUM 40 MG/0.4 ML SYRINGE SQ SCH (16:25)
[2018-01-29] VITALS: BP 180/93; PULSE 75; RESP 16; TEMP 97.8; O2SAT 100
[2018-01-29] MEDS: NS + KCL 20 MEQ INJ 1,000 ML IV SCH ×2 (02:03→19:45)
[2018-01-29 04:00] VITALS: BP 165/96; PULSE 78; RESP 16; TEMP 96.9; O2SAT 100
[2018-01-29] MEDS: chlordiazePOXIDE 25 MG CAP PO SCH ×3 (05:36→18:32)
[2018-01-29 06:49] LABS: CALCIUM 8.4 MG/DL (8.5-10.1)
[2018-01-29 06:50] LABS: BICARBONATE 27.8 MEQ/L (21.0-32.0)
[2018-01-29 06:53] LABS: CREATININE 0.43 MG/DL (0.50-1.00)
[2018-01-29 08:11] VITALS: BP 149/81; PULSE 82; RESP 16; TEMP 97.1; O2SAT 99
[2018-01-29] MEDS: MULTIVITAMINS/MINERALS THERAPEUTIC TAB PO SCH (09:00)
[2018-01-29] MEDS: REMOVE OLD PATCH T-DERMAL SCH (09:00)
[2018-01-29] MEDS: SODIUM CHLORIDE 0.9% FLUSH 10 ML FLUSH IV FLUSH SCH ×2 (10:10→20:02)
[2018-01-29] MEDS: THIAMINE HCL 100 MG TAB PO SCH (10:10)
[2018-01-29] MEDS: FOLIC ACID 1 MG TAB PO SCH (10:10)
[2018-01-29] MEDS: PANTOPRAZOLE SOD 40 MG DELAYED RELEASE TAB PO SCH ×2 (10:10→21:00)
[2018-01-29] MEDS: NICOTINE 14 MG/24 HR PATCH T-DERMAL SCH (10:10)
[2018-01-29] MEDS: POTASSIUM CHLORIDE 20 MEQ CONTROLLED RELEASE TAB PO SCH (10:15)
--- NOTE | 2018-01-29 11:01 | HHI.PR ---
Subjective Remarks Delirium tremens is still present, not yet improving. Confusion present overnight and yesterday evening, she has tried to ambulate on her own and fell without trauma yesterday.. Patient has moved closer to the desk for monitoring. She complains of nausea today. Objective Vital Signs Date Time Temp Pulse Resp B/P (MAP) Pulse Ox O2 Delivery O2 Flow Rate FiO2 01/29/18 08:11 97.1 82 16 149/81 (103) 99 01/29/18 04:00 96.9 78 16 165/96 (119) 100 01/29/18 00:00 97.8 75 16 180/93 (122) 100 01/28/18 20:15 73 01/28/18 20:00 98.0 76 20 153/87 (109) 98 01/28/18 18:30 98.7 76 20 155/97 (116) 99 01/28/18 15:50 97.9 86 20 139/89 (106) 99 01/28/18 11:50 97.9 93 20 146/95 (112) 99 I/O 01/28/18 01/28/18 01/28/18 01/29/18 01/29/18 01/29/18 07:00 15:00 23:00 07:00 15:00 23:00 Intake Total 2000 ml 341 ml 2178 ml 240 ml Balance 2000 ml 341 ml 2178 ml 240 ml Intake Oral 341 ml 300 ml 240 ml IV Total 2000 ml 1878 ml # Voids 7 4 4 # Bowel Movements 3 0 Result Diagram: 01/28/18 0620 01/29/18 0445 Objective Remarks GENERAL: NAD, A&Ox2, global tremors HEAD: Normocephalic. NECK: Supple, trachea midline. No lymphadenopathy. EYES: No scleral icterus. No injection or drainage. CARDIOVASCULAR: Regular rate and rhythm without murmurs, gallops, or rubs. RESPIRATORY: Breath sounds equal bilaterally. No accessory muscle use. GASTROINTESTINAL: Abdomen soft, non-tender, nondistended. MUSCULOSKELETAL: No cyanosis, or edema. SKIN: Warm and dry. NEURO: No focal neurological deficitis. A/P Problem List: (1) Alcohol withdrawal ICD Code: F10.239 - Alcohol dependence with withdrawal, unspecified Status: Acute (2) Alcoholic gastritis ICD Code: K29.20 - Alcoholic gastritis without bleeding Status: Acute (3) Elevated liver function tests ICD Code: R79.89 - Other specified abnormal findings of blood chemistry Status: Acute Assessment and Plan 67-year-old female admitted secondary to delirium tremens Labs reviewed. Potassium level is low again today. Continue to monitor labs. Labs ordered for further monitoring. Replaced and repeat potassium level at noon today. Will replace again as needed. Anticipate tomorrow improvement should be seen based on timing of alcohol withdrawal as reported by patient. Hypokalemia Monitor and replace as needed Etiology is related to delirium tremens Delirium tremens Alcohol abuse Alcohol withdrawal Folic acid Thiamine Scheduled Librium CIWA protocol Monitor for electrolytes disturbance Elevated LFTs Hepatitis panel ordered Gastritis Twice a day Protonix Avoid alcohol Follow clinically for improvement DVT prophylaxis Lovenox Problem Qualifiers (1) Alcohol withdrawal: Qualified Codes: F10.239 - Alcohol dependence with withdrawal, unspecified (2) Alcoholic gastritis: Qualified Codes: K29.20 - Alcoholic gastritis without bleeding Octavio Arteaga MD Jan 29, 2018 11:01
[2018-01-29 12:23] VITALS: BP 139/95; PULSE 88; RESP 16; TEMP 98.4; O2SAT 98
[2018-01-29 16:47] VITALS: BP 132/86; PULSE 80; RESP 14; TEMP 97.5; O2SAT 100
[2018-01-29] MEDS: ENOXAPARIN SODIUM 40 MG/0.4 ML SYRINGE SQ SCH (18:33)
[2018-01-29] MEDS: LORazepam 1 MG TAB PO PRN (18:33)
[2018-01-29 20:00] VITALS: BP 117/59; PULSE 84; RESP 20; TEMP 97.5; O2SAT 98
[2018-01-30] VITALS: BP 139/72; PULSE 83; RESP 20; TEMP 98.5; O2SAT 98
[2018-01-30] MEDS: chlordiazePOXIDE 25 MG CAP PO SCH ×2 (01:36→05:03)
[2018-01-30] MEDS: POTASSIUM CHLORIDE 20 MEQ CONTROLLED RELEASE TAB PO SCH ×3 (01:37→20:42)
[2018-01-30 04:00] VITALS: BP 158/74; PULSE 79; RESP 20; TEMP 96; O2SAT 98
[2018-01-30 06:35] LABS: AUTOMATED NEUTROPHIL # 2.4 TH/MM3 (1.8-7.7); BASOPHIL % 0.8 % (0.0-2.0); EOSINOPHIL # 0.1 TH/MM3 (0-0.4); EOSINOPHIL % 2.7 % (0.0-4.0); HEMATOCRIT 35.5 % (35.0-46.0); HEMOGLOBIN 11.6 GM/DL (11.6-15.3); LYMPH % 27.9 % (9.0-44.0); LYMPHOCYTE # 1.2 TH/MM3 (1.0-4.8); MEAN CELL VOLUME 102.7 FL (80.0-100.0); MEAN CORPUSCULAR HEMOGLOBIN 33.6 PG (27.0-34.0); MEAN CORPUSCULAR HGB CONC 32.8 % (32.0-36.0); MEAN PLATELET VOLUME 9.2 FL (7.0-11.0); MONO % 9.4 % (0.0-8.0); MONOCYTE # 0.4 TH/MM3 (0-0.9); NEUT % 59.2 % (16.0-70.0); PLATELET COUNT 154 TH/MM3 (150-450); RED BLOOD COUNT 3.46 MIL/MM3 (4.00-5.30); RED CELL DISTRIBUTION WIDTH 13.2 % (11.6-17.2); WHITE BLOOD COUNT 4.1 TH/MM3 (4.0-11.0)
[2018-01-30 07:09] LABS: ALBUMIN 2.5 GM/DL (3.4-5.0); ALKALINE PHOSPHATASE 68 U/L (45-117); ALT (GPT) 209 U/L (10-53); AST (GOT) 177 U/L (15-37); BICARBONATE 27.1 MEQ/L (21.0-32.0); BLOOD UREA NITROGEN 7 MG/DL (7-18); CALCIUM 8.4 MG/DL (8.5-10.1); CHLORIDE 109 MEQ/L (98-107); CREATININE 0.45 MG/DL (0.50-1.00); GLOMERULAR FILTRATION RATE 139 ML/MIN (>89); GLUCOSE,RANDOM 102 MG/DL (74-106); SODIUM (NA) 142 MEQ/L (136-145); TOTAL BILIRUBIN ADULT 0.5 MG/DL (0.2-1.0); TOTAL PROTEIN 5.8 GM/DL (6.4-8.2)
[2018-01-30 08:00] VITALS: BP 132/65; PULSE 79; PULSE 95; RESP 18; TEMP 96.2; O2SAT 95
[2018-01-30] MEDS: NS + KCL 20 MEQ INJ 1,000 ML IV SCH ×2 (08:09→18:28)
[2018-01-30] MEDS: SODIUM CHLORIDE 0.9% FLUSH 10 ML FLUSH IV FLUSH SCH ×2 (08:09→20:09)
[2018-01-30] MEDS: MULTIVITAMINS/MINERALS THERAPEUTIC TAB PO SCH (08:10)
[2018-01-30] MEDS: FOLIC ACID 1 MG TAB PO SCH (08:11)
[2018-01-30] MEDS: PANTOPRAZOLE SOD 40 MG DELAYED RELEASE TAB PO SCH ×2 (08:11→20:42)
[2018-01-30] MEDS: NICOTINE 14 MG/24 HR PATCH T-DERMAL SCH (08:11)
[2018-01-30] MEDS: THIAMINE HCL 100 MG TAB PO SCH (09:00)
[2018-01-30] MEDS: REMOVE OLD PATCH T-DERMAL SCH (09:00)
--- NOTE | 2018-01-30 09:56 | HHI.PR ---
Subjective Remarks Proving delirium tremens symptoms. Patient is now able to tolerate a wean. We discussed with the patient. Objective Vital Signs Date Time Temp Pulse Resp B/P (MAP) Pulse Ox O2 Delivery O2 Flow Rate FiO2 01/30/18 08:00 79 01/30/18 08:00 96.2 95 18 132/65 (87) 95 01/30/18 04:00 96.0 79 20 158/74 (102) 98 01/30/18 00:00 98.5 83 20 139/72 (94) 98 01/29/18 20:00 97.5 84 20 117/59 (78) 98 01/29/18 16:47 97.5 80 14 132/86 (101) 100 01/29/18 12:23 98.4 88 16 139/95 (110) 98 I/O 01/29/18 01/29/18 01/29/18 01/30/18 01/30/18 01/30/18 07:00 15:00 23:00 07:00 15:00 23:00 Intake Total 2178 ml 462 ml 222 ml 120 ml Balance 2178 ml 462 ml 222 ml 120 ml Intake Oral 300 ml 462 ml 222 ml 120 ml IV Total 1878 ml # Voids 4 4 3 # Bowel Movements 0 2 0 Result Diagram: 01/30/18 0510 01/30/18 0510 Objective Remarks GENERAL: NAD, A&Ox2, global tremors HEAD: Normocephalic. NECK: Supple, trachea midline. No lymphadenopathy. EYES: No scleral icterus. No injection or drainage. CARDIOVASCULAR: Regular rate and rhythm without murmurs, gallops, or rubs. RESPIRATORY: Breath sounds equal bilaterally. No accessory muscle use. GASTROINTESTINAL: Abdomen soft, non-tender, nondistended. MUSCULOSKELETAL: No cyanosis, or edema. SKIN: Warm and dry. NEURO: No focal neurological deficitis. A/P Problem List: (1) Alcohol withdrawal ICD Code: F10.239 - Alcohol dependence with withdrawal, unspecified Status: Acute (2) Alcoholic gastritis ICD Code: K29.20 - Alcoholic gastritis without bleeding Status: Acute (3) Elevated liver function tests ICD Code: R79.89 - Other specified abnormal findings of blood chemistry Status: Acute Assessment and Plan 67-year-old female admitted secondary to delirium tremens Labs reviewed. Continue to monitor potassium levels. Continue to monitor labs. Labs ordered for further monitoring. Librium decreased 10 mg by mouth every 6 hours. Continue CIWA protocol. Plan to wean Librium dosing by one half every 1-2 days, as tolerated. Hypokalemia Monitor and replace as needed Etiology is related to delirium tremens Delirium tremens Alcohol abuse Alcohol withdrawal Folic acid Thiamine Scheduled Librium CIWA protocol Monitor for electrolytes disturbance Elevated LFTs Hepatitis panel ordered Gastritis Twice a day Protonix Avoid alcohol Follow clinically for improvement DVT prophylaxis Lovenox Problem Qualifiers (1) Alcohol withdrawal: Qualified Codes: F10.239 - Alcohol dependence with withdrawal, unspecified (2) Alcoholic gastritis: Qualified Codes: K29.20 - Alcoholic gastritis without bleeding Octavio Arteaga MD Jan 30, 2018 09:56
[2018-01-30 12:00] VITALS: BP 128/60; PULSE 90; RESP 18; TEMP 97; O2SAT 95
[2018-01-30 16:00] VITALS: BP 120/62; PULSE 92; RESP 18; TEMP 97; O2SAT 95
[2018-01-30] MEDS: ENOXAPARIN SODIUM 40 MG/0.4 ML SYRINGE SQ SCH (17:02)
[2018-01-30 21:02] VITALS: BP 139/66; PULSE 85; RESP 16; TEMP 98.3; O2SAT 97
[2018-01-31] VITALS (7 sets, daily range): BP systolic 122–150; BP diastolic 60–83; PULSE 70–96; RESP 16–18; TEMP 96.8–98.8; O2SAT 96–99
[2018-01-31] MEDS: REMOVE OLD PATCH T-DERMAL SCH (09:00)
[2018-01-31] MEDS: NICOTINE 14 MG/24 HR PATCH T-DERMAL SCH (09:53)
[2018-01-31] MEDS: THIAMINE HCL 100 MG TAB PO SCH (09:53)
[2018-01-31] MEDS: NS + KCL 20 MEQ INJ 1,000 ML IV SCH ×2 (09:53→19:25)
[2018-01-31] MEDS: SODIUM CHLORIDE 0.9% FLUSH 10 ML FLUSH IV FLUSH SCH ×2 (09:53→20:18)
[2018-01-31] MEDS: PANTOPRAZOLE SOD 40 MG DELAYED RELEASE TAB PO SCH ×2 (09:54→20:17)
[2018-01-31] MEDS: POTASSIUM CHLORIDE 20 MEQ CONTROLLED RELEASE TAB PO SCH ×2 (09:54→20:18)
[2018-01-31] MEDS: MULTIVITAMINS/MINERALS THERAPEUTIC TAB PO SCH (09:54)
[2018-01-31] MEDS: FOLIC ACID 1 MG TAB PO SCH (09:54)
[2018-01-31 10:03] LABS: AUTOMATED NEUTROPHIL # 2.5 TH/MM3 (1.8-7.7); BASOPHIL % 0.9 % (0.0-2.0); EOSINOPHIL # 0.1 TH/MM3 (0-0.4); EOSINOPHIL % 2.9 % (0.0-4.0); HEMATOCRIT 35.6 % (35.0-46.0); HEMOGLOBIN 11.5 GM/DL (11.6-15.3); LYMPH % 22.5 % (9.0-44.0); LYMPHOCYTE # 0.9 TH/MM3 (1.0-4.8); MEAN CELL VOLUME 102.5 FL (80.0-100.0); MEAN CORPUSCULAR HEMOGLOBIN 33.2 PG (27.0-34.0); MEAN CORPUSCULAR HGB CONC 32.4 % (32.0-36.0); MEAN PLATELET VOLUME 8.6 FL (7.0-11.0); MONO % 10.6 % (0.0-8.0); MONOCYTE # 0.4 TH/MM3 (0-0.9); NEUT % 63.1 % (16.0-70.0); PLATELET COUNT 197 TH/MM3 (150-450); RED BLOOD COUNT 3.47 MIL/MM3 (4.00-5.30); RED CELL DISTRIBUTION WIDTH 13.1 % (11.6-17.2); WHITE BLOOD COUNT 3.9 TH/MM3 (4.0-11.0)
--- NOTE | 2018-01-31 12:03 | HHI.PR ---
Subjective Remarks Nursing reports that the patient is still very sleepy, not eating much. Patient herself says she feels chest is weak as yesterday. Denies any nausea or vomiting. Says she wants to get stronger. Objective Vital Signs Date Time Temp Pulse Resp B/P (MAP) Pulse Ox O2 Delivery O2 Flow Rate FiO2 01/31/18 08:00 98.8 96 18 150/76 (100) 96 01/31/18 04:57 96.8 84 16 137/80 (99) 97 01/31/18 00:16 97.9 70 16 122/60 (80) 96 01/30/18 21:02 98.3 85 16 139/66 (90) 97 01/30/18 16:00 97.0 92 18 120/62 (81) 95 I/O 01/30/18 01/30/18 01/30/18 01/31/18 01/31/18 01/31/18 07:00 15:00 23:00 07:00 15:00 23:00 Intake Total 120 ml Balance 120 ml Intake Oral 120 ml # Voids 3 2 # Bowel Movements 0 0 Result Diagram: 01/31/18 0930 01/30/18 0510 Objective Remarks Lying in bed, heavily sleeping, eventually awoken with vocalization. No tremors, extraocular motions intact, abdomen soft, nontender, nondistended, A/P Assessment and Plan 67-year-old female admitted secondary to delirium tremens Generalized weakness -PT recommending shelter facility Somnolence -Likely secondary to high dose scheduled Librium on impaired liver function -We will stop Librium for now and just let the CIWA protocol hold to minimize any further somnolence so that the patient can better participate with therapy Hypokalemia replacing appropriately Delirium tremens Alcohol abuse Alcohol withdrawal Folic acid Thiamine CIWA protocol Elevated LFTs Viral hepatitis panel is negative, likely secondary to alcohol abuse Gastritis Twice a day Protonix Avoid alcohol Follow clinically for improvement DVT prophyl lovenox Chuy Issa MD Jan 31, 2018 12:03
[2018-01-31] MEDS: LORazepam 1 MG TAB PO PRN (18:39)
[2018-01-31] MEDS: ENOXAPARIN SODIUM 40 MG/0.4 ML SYRINGE SQ SCH (18:40)
[2018-02-01 00:29] VITALS: BP 185/78; PULSE 77; RESP 16; TEMP 97; O2SAT 96
[2018-02-01] MEDS: NS + KCL 20 MEQ INJ 1,000 ML IV SCH ×2 (02:50→15:35)
[2018-02-01 04:20] VITALS: BP 138/65; PULSE 92; RESP 20; TEMP 97.8; O2SAT 94
[2018-02-01 08:00] VITALS: BP 142/75; PULSE 106; RESP 18; TEMP 98.8; O2SAT 96
[2018-02-01] MEDS: REMOVE OLD PATCH T-DERMAL SCH (08:10)
[2018-02-01] MEDS: THIAMINE HCL 100 MG TAB PO SCH (08:10)
[2018-02-01] MEDS: SODIUM CHLORIDE 0.9% FLUSH 10 ML FLUSH IV FLUSH SCH ×2 (08:10→19:55)
[2018-02-01] MEDS: PANTOPRAZOLE SOD 40 MG DELAYED RELEASE TAB PO SCH ×2 (08:10→19:57)
[2018-02-01] MEDS: POTASSIUM CHLORIDE 20 MEQ CONTROLLED RELEASE TAB PO SCH ×2 (08:10→19:57)
[2018-02-01] MEDS: NICOTINE 14 MG/24 HR PATCH T-DERMAL SCH (08:11)
[2018-02-01 12:00] VITALS: BP 146/72; PULSE 94; RESP 20; TEMP 98.2; O2SAT 95
[2018-02-01 13:47] LABS: CHLORIDE 109 MEQ/L (98-107); SODIUM (NA) 142 MEQ/L (136-145)
[2018-02-01 13:50] LABS: ALBUMIN 2.4 GM/DL (3.4-5.0); BICARBONATE 27.9 MEQ/L (21.0-32.0); CALCIUM 8.9 MG/DL (8.5-10.1); GLUCOSE,RANDOM 106 MG/DL (74-106)
[2018-02-01 13:51] LABS: BLOOD UREA NITROGEN 7 MG/DL (7-18)
[2018-02-01 13:53] LABS: ALT (GPT) 213 U/L (10-53)
[2018-02-01 13:54] LABS: AST (GOT) 141 U/L (15-37); CREATININE 0.69 MG/DL (0.50-1.00); GLOMERULAR FILTRATION RATE 85 ML/MIN (>89)
[2018-02-01 13:55] LABS: TOTAL BILIRUBIN ADULT 0.4 MG/DL (0.2-1.0); TOTAL PROTEIN 6.1 GM/DL (6.4-8.2)
[2018-02-01 13:56] LABS: ALKALINE PHOSPHATASE 65 U/L (45-117)
[2018-02-01] MEDS: ENOXAPARIN SODIUM 40 MG/0.4 ML SYRINGE SQ SCH (15:35)
[2018-02-01 16:00] VITALS: BP 148/76; PULSE 89; RESP 20; TEMP 97.9; O2SAT 96
--- NOTE | 2018-02-01 16:01 | HHI.DS ---
Discharge Summary Admission Date Jan 26, 2018 at 12:17 Discharge Date: Feb 02, 2018 Admitting Diagnosis alcohol withdrawal, impending DTs, elevated liver enzymes (1) Alcohol withdrawal ICD Code: F10.239 - Alcohol dependence with withdrawal, unspecified Status: Acute (2) Alcoholic gastritis ICD Code: K29.20 - Alcoholic gastritis without bleeding Status: Acute (3) Elevated liver function tests ICD Code: R79.89 - Other specified abnormal findings of blood chemistry Status: Acute Procedures none Brief History - From Admission Mrs. Hurtado is a 67 year old female. She has a long history of alcohol abuse. She is been drinking heavily for many years. She came in the hospital secondary to shaking. She says recently she has been trying to cut back or drink. She also complains of abdominal pain. This may be related to alcohol abuse and gastritis. LFTs are elevated. She has a history of hepatitis. She cannot remember which hepatitis virus she has. LFT elevations could be related to alcohol or chronic hepatitis. No other complaints tonight. Some diarrhea as reported and can also be related to alcoholism. CBC/BMP: 01/31/18 0930 02/01/18 1320 Significant Findings Laboratory Tests Test 01/30/18 05:10 01/31/18 09:30 02/01/18 13:20 Red Blood Count 3.46 MIL/MM3 (4.00-5.30) 3.47 MIL/MM3 (4.00-5.30) Mean Corpuscular Volume 102.7 FL (80.0-100.0) 102.5 FL (80.0-100.0) Monocytes (%) (Auto) 9.4 % (0.0-8.0) 10.6 % (0.0-8.0) Creatinine 0.45 MG/DL (0.50-1.00) Total Protein 5.8 GM/DL (6.4-8.2) 6.1 GM/DL (6.4-8.2) Albumin 2.5 GM/DL (3.4-5.0) 2.4 GM/DL (3.4-5.0) Calcium Level 8.4 MG/DL (8.5-10.1) Aspartate Amino Transf (AST/SGOT) 177 U/L (15-37) 141 U/L (15-37) Alanine Aminotransferase (ALT/SGPT) 209 U/L (10-53) 213 U/L (10-53) Chloride Level 109 MEQ/L (98-107) 109 MEQ/L (98-107) White Blood Count 3.9 TH/MM3 (4.0-11.0) Hemoglobin 11.5 GM/DL (11.6-15.3) Lymphocytes # (Auto) 0.9 TH/MM3 (1.0-4.8) Estimat Glomerular Filtration Rate 85 ML/MIN (>89) PE at Discharge Lying in bed, awake, alert, appears fatigued, no tremors noted, unlabored breathing, clear lungs bilaterally Hospital Course Patient was admitted, started on Librium taper. Her LFTs started increasing, Librium was discontinued, patient maintained CIWA protocol, eventually her scores improved. Was tolerating p.o. intake but needed inpatient rehabilitation post discharge. Her viral hepatitis panel came back negative. Patient has met maximal benefit from hospitalization and is clinically stable for discharge to group home facility. Pt Condition on Discharge: Stable Discharge Disposition: Discharge to SNF Discharge Time: <= 30 minutes Discharge Instructions DIET: Follow Instructions for: High Protein Diet Follow up Referrals: PCP Follow-up - 1 Week New Medications: Aspirin DR (Aspirin EC) 81 Mg Tabdr 81 MG PO DAILY for Blood Clot Prevention, #30 TAB 0 Refills Lorazepam (Lorazepam) 0.5 Mg Tab 0.5 MG PO DAILY PRN for withdrawal, #5 TAB 0 Refills Pantoprazole (Pantoprazole) 40 Mg Tab 40 MG PO DAILY for Reflux, #30 TAB 0 Refills Thiamine (Vitamin B-1) 100 Mg Tab 100 MG PO DAILY for Nutritional Supplement, #30 TAB 0 Refills Discontinued Medications: Aspirin (Aspirin) 325 Mg Tab 325 MG PO DAILY, #30 TAB 0 Refills Chuy Issa MD Feb 01, 2018 16:01
[2018-02-01] MEDS: LORazepam 1 MG TAB PO PRN (18:26)
--- NOTE | 2018-02-01 18:38 | HHI.PR ---
Subjective Remarks Nursing reports pt is eating today. Pt says she feels as weak as yesterday but she is sitting up at the side of the bed today and ambulating to commode per RN. yesterday she lied in bed when I saw her. Objective Vital Signs Date Time Temp Pulse Resp B/P (MAP) Pulse Ox O2 Delivery O2 Flow Rate FiO2 02/01/18 16:00 97.9 89 20 148/76 (100) 96 02/01/18 12:00 98.2 94 20 146/72 (96) 95 02/01/18 08:00 98.8 106 18 142/75 (97) 96 02/01/18 04:20 97.8 92 20 138/65 (89) 94 02/01/18 00:29 97.0 77 16 185/78 (113) 96 01/31/18 20:11 97.2 77 18 124/61 (82) 99 01/31/18 19:30 73 I/O 01/31/18 01/31/18 01/31/18 02/01/18 02/01/18 02/01/18 07:00 15:00 23:00 07:00 15:00 23:00 Intake Total 750 ml 4820 ml 817 ml 1247 ml 375 ml Output Total 425 ml Balance 750 ml 4395 ml 817 ml 1247 ml 375 ml Intake Oral 750 ml 325 ml 725 ml 375 ml IV Total 4495 ml 817 ml 522 ml Output Urine Total 425 ml # Voids 2 4 1 3 6 3 # Bowel Movements 0 1 0 0 1 1 Result Diagram: 01/31/18 0930 02/01/18 1320 Objective Remarks sitting up at side of bed, AO x 3, appears fatigued A/P Assessment and Plan 67-year-old female admitted secondary to delirium tremens Generalized weakness -PT recommending fdc facility; awaiting decision with CM. Somnolence -Improved after stopping librium. continue CIWA Hypokalemia replacing appropriately Delirium tremens Alcohol abuse Alcohol withdrawal Folic acid Thiamine CIWA protocol Elevated LFTs Viral hepatitis panel is negative, likely secondary to alcohol abuse Gastritis Twice a day Protonix Avoid alcohol Follow clinically for improvement DVT prophyl lovenox Chuy Issa MD Feb 01, 2018 18:38
[2018-02-01 20:00] VITALS: BP 134/68; PULSE 78; RESP 16; TEMP 98.8; O2SAT 95
[2018-02-02] VITALS: BP 132/74; PULSE 85; RESP 18; TEMP 98.6; O2SAT 94
[2018-02-02] MEDS: NS + KCL 20 MEQ INJ 1,000 ML IV SCH (03:21)
[2018-02-02 08:00] VITALS: BP 174/93; PULSE 90; RESP 18; TEMP 97.7; O2SAT 96
[2018-02-02] MEDS: REMOVE OLD PATCH T-DERMAL SCH (09:00)
[2018-02-02] MEDS: NICOTINE 14 MG/24 HR PATCH T-DERMAL SCH (09:00)
[2018-02-02] MEDS: THIAMINE HCL 100 MG TAB PO SCH (09:38)
[2018-02-02] MEDS: PANTOPRAZOLE SOD 40 MG DELAYED RELEASE TAB PO SCH (09:38)
[2018-02-02] MEDS: POTASSIUM CHLORIDE 20 MEQ CONTROLLED RELEASE TAB PO SCH (09:38)
[2018-02-02] MEDS: SODIUM CHLORIDE 0.9% FLUSH 10 ML FLUSH IV FLUSH SCH (09:40)
[2018-02-02] MEDS ORDERED: ENALAPRILAT 1.25 MG/ML VIAL IV PUSH PRN (10:15)
[2018-02-02 11:15] VITALS: BP 148/74; PULSE 74; RESP 18; TEMP 98.6
[2018-02-02 12:00] VITALS: BP 148/77; PULSE 75; RESP 18; TEMP 97; O2SAT 96
[2018-02-02] MEDS ORDERED: TRAZ50TA12 PO (12:59)
[2018-02-02 13:00] VITALS: BP 174/77
[2018-02-02] MEDS ORDERED: VITA100T54 PO (13:03)
[2018-02-02] MEDS ORDERED: LORA0.5T PO (13:03)
[2018-02-02] MEDS ORDERED: ASPI81TA23 PO (13:03)
[2018-02-02] MEDS ORDERED: PANT40TA3 PO (13:18)
[2018-02-02 13:59] VITALS: BP 166/85; PULSE 86; RESP 17; TEMP 98.7
== END 2018-02-02 16:15 | DRG 897 ==
LOC: PHED 09:19 → PHEDA 12:17 → PHEDH 16:10 → PH3A 20:24
PROVIDERS: ADMIT Hospitalist; ATTEND Hospitalist
DX: F10.231 Alcohol dependence with withdrawal delirium (principal); E87.6 Hypokalemia; F17.210 Nicotine dependence, cigarettes, uncomplicated; R79.89 Other specified abnormal findings of blood chemistry; R53.1 Weakness; R40.0 Somnolence; K29.20 Alcoholic gastritis without bleeding; Y90.1 Blood alcohol level of 20-39 mg/100 ml
CPT/HCPCS: 70450; 74176; 80048; 80053; 80074; 80307; 81001; 82550; 82607; 83690; 83735; 84132; 85025; 85027; 85610; 93005; 96361; 96372; 96374; G8987-GP; G8988-GP; J1650; J2060; J2405; J3411; J3480; J7030